=== PATIENT | female | born 1940 | race Caucasian/White ===

== ENCOUNTER 2021-11-20 17:23 | Emergency (ER) | payer OTHER ==
[2021-11-20 19:36] LABS: BASOPHIL 0.4 % (0-2); HCT 41.6 % (37.0-47.0); HGB 13.4 g/dl (12.5-16.0); LYMPHOCYTE 21.8 % (15-48); MCH 30.5 pg (25.0-31.0); MCHC 32.2 g/dL (32.0-36.0); MCV 94.8 fL (78.0-100.0); MONOCYTE 8.9 % (0-12); MPV 10.1 fL (6.0-9.5); NEUTROPHIL 67.4 % (41-80); NRBC 0; PLT 269 K/uL (150-400); RBC 4.39 M/uL (4.20-5.40); RDW 14.5 % (11.5-14.0); WBC 8.3 K/uL (4.0-10.5)
[2021-11-20 19:56] LABS: ALBUMIN 3.8 g/dL (3.4-5.0); BILIRUBIN - TOTAL 0.3 mg/dL (0.2-1.0); CREATININE 0.75 mg/dL (0.51-0.95); GLOBULIN (CALCULATION) 3.5 g/dL; POTASSIUM 3.8 mmol/L (3.5-5.1); TOTAL PROTEIN 7.3 g/dL (6.4-8.2)
[2021-11-20 21:01] LABS: BILIRUBIN NEGATIVE (NEGATIVE); BLOOD NEGATIVE Ery/uL (NEGATIVE); CLARITY CLEAR (CLEAR); COLOR YELLOW (YELLOW); GLUCOSE (U) NORMAL (NORMAL); LEUKOCYTES TRACE Leu/uL (NEGATIVE); NITRITE NEGATIVE (NEGATIVE); PROTEIN NEGATIVE (NEGATIVE); UROBILINOGEN 0.2 mg/dL (0.2-1.0); pH 5.5 (5.0-9.0)
[2021-11-20 21:14] LABS: URINARY RBC RARE
[2021-11-20 21:16] LABS: BACTERIA TRACE
== END 2021-11-20 21:40 | disposition home or self-care (01) ==
LOC: FER 17:23
PROVIDERS: Internal Medicine
DX: R10.9 Unspecified abdominal pain (principal); R11.0 Nausea; I10 Essential (primary) hypertension; Z87.891 Personal history of nicotine dependence; Z88.1 Allergy status to other antibiotic agents; Z88.2 Allergy status to sulfonamides; Z88.8 Allergy status to other drugs, medicaments and biological substances; Z20.822 Contact with and (suspected) exposure to COVID-19
CPT/HCPCS: 36415; 80053; 81001; 85025; J2405; J7030; U0002